=== PATIENT | female | born 2000 | race Two or more races ===

== ENCOUNTER 2020-05-22 12:41 | Emergency (ER) | payer MEDICAID ==
[~2020-05-22] VITALS: Ht 167.6 cm; Wt 81.3 kg
[2020-05-22 13:46] LABS: BASOPHILS % 0.3 % (0.0-2.0); EOSINOPHILS % 1.1 % (0.0-5.0); HEMATOCRIT. 36.6 % (36.0-48.0); HEMOGLOBIN. 12.3 g/dL (12.0-16.0); LYMPHOCYTES % 21.9 % (20.0-50.0); MEAN CORPUSCULAR HEMOGLOBIN 29.6 pg (28.0-32.0); MEAN CORPUSCULAR VOLUME 87.8 fL (81.0-99.0); MEAN PLATELET VOLUME 9.3 fl (7.4-10.4); MONOCYTES % 6.4 % (2.0-8.0); NEUTROPHILS % 70.3 % (40.0-76.0); PLATELET 226 x1000/uL (130-400); RED BLOOD CELL COUNT 4.17 mill/uL (4.2-5.4); RED CELL DISTRIBUTION WIDTH 14.2 % (11.6-14.6)
[2020-05-22 13:48] LABS: CHLORIDE 109 mEq/L (98-107)
[2020-05-22 13:50] LABS: CLARITY URINE CLEAR (CLEAR); COLOR URINE YELLOW (YELLOW); KETONES URINE NEGATIVE (NEGATIVE); LEUKOCYTE ESTERASE URINE TRACE (NEGATIVE); NITRITE URINE NEGATIVE (NEGATIVE); OCCULT BLOOD URINE NEGATIVE (NEGATIVE); PH URINE 6.5 (4.5-8.0); PROTEIN URINE NEGATIVE (NEGATIVE); SPECIFIC GRAVITY URINE 1.015 (1.005-1.030); UROBILINOGEN URINE 0.2 E.U./dL (0.2-1.0)
[2020-05-22 14:13] LABS: B-HCG QUANTITATIVE 31874 mIU/mL (<3)
[2020-05-22 15:20] VITALS: BP 104/64
== END 2020-05-22 15:20 | disposition home or self-care (01) ==
LOC: EDBD 12:41 → ER 12:41
DX: O20.0 Threatened abortion (principal); Z3A.14 14 weeks gestation of pregnancy
CPT/HCPCS: 36415; 76801; 80053; 81003; 81025; 84702; 85025; 86850; 86900; 93005; 99284

== ENCOUNTER 2020-10-20 00:10 | Observation (INO) | payer MEDICAID ==
[~2020-10-20] VITALS: Ht 30.5 cm; Wt 0.5 kg
[2020-10-20] MEDS ORDERED: LACTATED RINGERS 1,000 ML IV SCH (01:15)
[2020-10-20] MEDS ORDERED: PREN1TAB78 PO (03:22)
== END 2020-10-20 03:55 | disposition home or self-care (01) ==
LOC: 8 EST LDRP 00:10 → OBSVTOIN 00:10 → INTOOBSV 00:10
PROVIDERS: ADMIT Obstetrics & Gynecology; ATTEND Obstetrics & Gynecology
DX: O62.9 Abnormality of forces of labor, unspecified (principal); Z3A.35 35 weeks gestation of pregnancy
CPT/HCPCS: 59025; 96360; 96361; G0378; 99281

== ENCOUNTER 2020-11-17 16:17 | Observation (INO) | payer MEDICAID ==
[~2020-11-17] VITALS: Ht 167.6 cm; Wt 93.9 kg
[~2020-11-17 16:17] MED LIST: PREN1TAB78 PO
== END 2020-11-17 18:45 | disposition home or self-care (01) ==
LOC: 8 EST LDRP 16:17
PROVIDERS: ADMIT Obstetrics & Gynecology; ATTEND Obstetrics & Gynecology
DX: O36.8130 Decreased fetal movements, third trimester, not applicable or unspecified (principal); O62.9 Abnormality of forces of labor, unspecified; Z3A.39 39 weeks gestation of pregnancy
CPT/HCPCS: 59025; 76805; 76818; G0378; 99281